=== PATIENT | female | born 1995 | race Caucasian/White ===

== ENCOUNTER 2016-06-17 22:10 | Emergency (ER) | payer OTHER ==
[2016-06-17 22:17] VITALS: BP 136/60; PULSE 112; TEMP 98.9; BMI 23.0
== END 2016-06-18 00:03 | disposition left against medical advice (07) ==
LOC: JER 22:10
DX: Z53.21 Procedure and treatment not carried out due to patient leaving prior to being seen by health care provider (principal)
CPT/HCPCS: 99281-25

== ENCOUNTER 2016-06-18 19:03 | Emergency (ER) | payer OTHER ==
[2016-06-18 19:10] VITALS: BP 111/79; PULSE 109; TEMP 97.9; BMI 24.7
--- NOTE | 2016-06-18 19:18 | PDOC ---
History of Present Illness - General History Source: Patient Exam Limitations: No Limitations - History of Present Illness Initial Comments: 06/18/16 20:30 The patient is a 21 year old female, with no significant past medical history who presents to the emergency department with abdominal pain, nausea, vomiting ( nonbloody), and diarrhea (nonbloody) since yesterday .The patient was seen in this ER 06/10 with similar symptoms. She reports after being discharged she was feeling fine. She does note yesterday her symptoms returned and had severely worsened. She notes her diarrhea and vomit was mostly watery without mucous. She notes that today she has been feeling mostly nauseous, weak, and has been unable to leave her bed. She denies any recent travel. She denies eating any recent new foods. She notes being able to tolerate water. She denies chest pain and shortness of breath. She denies fever, chills, headache and dizziness. She denies dysuria, frequency, urgency and hematuria. Allergies:NKA Past surgical history: None Social history: Social EtOH, drug, and tobacco use. <Shaggy Warner - Last Filed: 06/18/16 20:36> <Keira Garrison - Last Filed: 06/19/16 04:26> - General Chief Complaint: Pain Stated Complaint: ABDOMINAL PAIN/NAUSEA/VOMITING/DIRRHEA Time Seen by Provider: 06/18/16 19:10 Past History <Shaggy Warner - Last Filed: 06/18/16 20:36> - Past Medical History Other medical history: PT DENIES - Psycho/Social/Smoking Cessation Hx Anxiety: No Suicidal Ideation: No Smoking History: Never smoked Have you smoked in the past 12 months: No Information on smoking cessation initiated: No Hx Alcohol Use: No Drug/Substance Use Hx: No Substance Use Type: None <Keira Garrison - Last Filed: 06/19/16 04:26> - Past Medical History Allergies/Adverse Reactions: Allergies Allergy/AdvReac Type Severity Reaction Status Date / Time No Known Allergies Allergy Verified 06/17/16 22:15 Home Medications: Ambulatory Orders NK [No Known Home Medication] 06/17/16 Review of Systems - Review of Systems All Other Systems: Reviewed and Negative <Shaggy Warner - Last Filed: 06/18/16 20:36> *Physical Exam - Vital Signs Last Vital Signs Temp Pulse Resp BP Pulse Ox 97.9 F 109 H 18 111/79 96 06/18/16 19:04 06/18/16 19:04 06/18/16 19:04 06/18/16 19:04 06/18/16 19:04 - Physical Exam Comments: 06/18/16 20:30 GENERAL: The patient is awake, alert, and fully oriented, in no acute distress. HEAD: Normal with no signs of trauma. EYES: Pupils equal, round and reactive to light, extraocular movements intact, sclera anicteric, conjunctiva clear with no pallor. ENT: Ears normal, nares patent, oropharynx clear without exudates. Somewhat dry mucous membranes. NECK: Normal range of motion, supple without lymphadenopathy, JVD, or masses. LUNGS: Breath sounds equal, clear to auscultation bilaterally. No wheeze/ crackles. HEART: Regular rate and rhythm, normal S1 and S2 without murmur or rub. ABDOMEN: Mild generalized abdominal tenderness. Soft/nondistended. BS wnl. No guarding or rebound. No palpable masses. No hepatosplenomegaly. EXTREMITIES: Normal range of motion, no edema. No clubbing or cyanosis. No cords , erythema, or tenderness. NEUROLOGICAL: Cranial nerves II through XII grossly intact. Normal speech, normal gait. PSYCH: Normal mood, normal affect. SKIN: Warm, Dry, normal turgor, no rashes or lesions noted. <Shaggy Warner - Last Filed: 06/18/16 20:36> - Vital Signs Last Vital Signs Temp Pulse Resp BP Pulse Ox 97.9 F 109 H 18 111/79 96 06/18/16 19:04 06/18/16 19:04 06/18/16 19:04 06/18/16 19:04 06/18/16 19:04 <Keira Garrison - Last Filed: 06/19/16 04:26> ED Treatment Course - LABORATORY CBC & Chemistry Diagram: 06/18/16 20:03 06/18/16 20:03 <Shaggy Warner - Last Filed: 06/18/16 20:36> - LABORATORY CBC & Chemistry Diagram: 06/18/16 20:03 06/18/16 20:03 <Keira Garrison - Last Filed: 06/19/16 04:26> Progress Note - Progress Note Progress Note: Documentation has been prepared under my direction and personally reviewed by me in its entirety. I attest that this documented accurately reflects all work, treatment, procedures and medical decision making performed by me. <Keira Garrison - Last Filed: 06/19/16 04:26> Medical Decision Making - Medical Decision Making As noted above, this 21-year-old otherwise healthy woman presents with recurrent nausea/vomiting/diarrhea. Patient was seen with similar symptoms last week. Exam is generally without significant abnormalities. CBC and chemistry profile is normal except for a mildly decreased sodium of 131. PGU is negative Urinalysis shows many bacteria but also many epithelial cells and is likely contaminated. Patient does not have any UTI symptoms at this time. Culture and sensitivity will not be sent. Patient received 4 mg of Zofran IV and felt significantly better. Patient will be discharged with instructions to maintain clear liquids and advance diet cautiously. She should follow-up with her own doctor and return to the emergency room if severe symptoms recur. <Keira Garrison - Last Filed: 06/19/16 04:26> *DC/Admit/Observation/Transfer - Attestations Scribe Attestion: 06/18/16 19:19 Documentation prepared by Shaggy Warner, acting as medical insurance coding specialist for Keira Garrison MD. <Shaggy Warner - Last Filed: 06/18/16 20:36> <Keira Garrison - Last Filed: 06/19/16 04:26> Diagnosis at time of Disposition: Gastroenteritis - Discharge Dispostion Disposition: HOME Condition at time of disposition: Stable - Patient Instructions Printed Discharge Instructions: DI for Viral Gastroenteritis -- Adult Additional Instructions: Clear liquids, advance diet cautiously Zofran 4 mg ODT up to 3 times a day as needed for nausea Return to ER or see your doctor if you have worsening abdominal pain or persistent vomiting - Post Discharge Activity Work/School Note: Back to Work
[2016-06-18 19:24] LABS: URINE BILIRUBIN 1+ (NEGATIVE); URINE BLOOD Negative (NEGATIVE); URINE GLUCOSE (UA) Negative (NEGATIVE); URINE KETONE 2+ (NEGATIVE); URINE LEUK ESTERASE Trace (NEGATIVE); URINE NITRITE Negative (NEGATIVE); URINE UROBILINOGEN 1.0 E.U/dl (0.2-1.0)
[2016-06-18 19:26] LABS: URINE APPEARANCE CLOUDY; URINE COLOR AMBER; URINE PROTEIN 2+ (NEGATIVE)
[2016-06-18 19:40] LABS: URINE BACTERIA MANY /hpf (NEGATIVE); URINE RBC 0-3 /hpf (0-3)
[2016-06-18 20:14] LABS: BASOPHIL 0.1 % (0-2.0); EOSINOPHIL 1.5 % (0-4.5); MCH 29.7 pg (25.7-33.7); MCHC 33.2 g/dl (32.0-36.0); MEAN CELL VOLUME 89.5 fl (80-96); MEAN PLT VOLUME 9.2 fl (7.5-11.1); NEUTROPHILS 64.6 % (42.8-82.8); PLATELET COUNT 229 K/MM3 (134-434); WHITE BLOOD COUNT 5.7 K/mm3 (4.0-10.0)
[2016-06-18 20:25] LABS: ALBUMIN 4.3 g/dl (3.5-5.0); ALK PHOS 69 U/L (32-92); ANION GAP 8 (8-16); BILIRUBIN,TOTAL 0.9 mg/dl (0.2-1.0); CALCIUM 8.8 mg/dl (8.4-10.2); CO2 25 mmol/L (22-28); CREATININE 0.7 mg/dl (0.6-1.3); GLUCOSE,RANDOM 79 mg/dl (74-106); SGOT/AST 26 U/L (10-42); SGPT/ALT 17 U/L (10-40); TOT PROT 7.2 g/dl (6.4-8.3)
[2016-06-18] MEDS ORDERED: ONDANSETRON 4 MG/2 ML VIAL IVPUSH ONE (20:30)
[2016-06-18] MEDS ORDERED: ONDANSETRON 4 MG/2 ML VIAL ONE (20:35)
== END 2016-06-18 21:13 | disposition home or self-care (01) ==
LOC: FER 19:03
PROC: 3E033GC Introduction of Other Therapeutic Substance into Peripheral Vein, Percutaneous Approach (ICD-10-PCS; principal; 2016-06-18)
DX: K52.9 Noninfective gastroenteritis and colitis, unspecified (principal)
CPT/HCPCS: 36415; 80053; 81003; 81015; 84703; 85025; 96374; 99283-25

== ENCOUNTER 2016-12-11 20:20 | Emergency (ER) | payer OTHER ==
[2016-12-11 20:32] VITALS: BP 129/80; PULSE 91; TEMP 98.4; BMI 24.0
--- NOTE | 2016-12-11 20:34 | PDOC ---
History of Present Illness - General History Source: Patient Exam Limitations: No Limitations - History of Present Illness Initial Comments: 12/11/16 20:56 The patient is a 21-year-old female, with no significant past medical history, who presents to the ED with abdominal pain nausea and vomiting that began on Thursday and abdominal pain that began yesterday. The patient describes the pain as intermittent, sharp in sensation, located in the epigastric area, nonradiating, and alleviated with passing bowel movements. Patient has had sharp abdominal pain in the past due to gas. She does report vomiting x1 today and multiple episodes of runny stools. Pt is sexually active and uses condoms. Last menstrual period was two days ago and was a normal. The patient denies any fever, chills, or cough. She denies any blood in stool. She denies any dysuria, frequency, urgency, or hesitancy. PAST MEDICAL HISTORY: no significant history PAST SURGICAL HISTORY: no significant history FAMILY HISTORY: no pertinent history SOCIAL HISTORY: Pt lives with family and is employed. Marijuana daily. She denies any tobacco or drug use. MEDICATIONS: reviewed ALLERGIES: As per nursing notes ROS General: No fevers or chills, no weakness, no weight loss HEENT: No change in vision. No sore throat,. No ear pain CardioVascular: No chest pain or shortness of breath Respiratory:No cough, or wheezing. Gastrointestinal:No constipation, No rectal bleeding. +abdominal pain, nausea, vomiting, diarrhea Genitourinary: No dysuria, hematuria, or frequency Musculoskeletal: No joint or muscle pain or swelling Neurologic: No headache, vertigo, dizziness or loss of consciousness Psychiatric: nor depression Skin: No rashes or easy bruising Endocrine: no increased thirst or abnormal weight change Allergic: no skin or latex allergy All other systems reviewed and normal Physical Exam: General: Well-nourished well-developed individual, no acute distress HEENT: Throat: Normal, tonsils normal, no erythema or exudate Neck: Supple, no meningeal signs, no lymphadenopathy Eyes::Pupils equal reactive and round, extraocular motion intact Chest: Nontender to palpation Cardiac: S1-S2 normal, regular rate and rhythm, no murmurs rubs or gallops Respiratory: Lungs clear to auscultation bilateral Abdomen: Soft, nondistended, normal bowel sounds. +Very mild tenderness to deep palpation of the epigastric area. Extremities: Warm, dry, no cyanosis, clubbing, or edema Skin: No rashes Neuro: Alert and oriented x3, nonfocal exam, grossly intact, normal gait Psych: Normal mood and affect <Izzy Hunter - Last Filed: 12/11/16 20:56> - General History Source: Patient Exam Limitations: No Limitations - History of Present Illness Initial Comments: 12/11/16 21:23 A portion of this note was documented by scribe services under my direction. I have reviewed the details of the note, within reason, and agree with the documentation. The case summary and management plan written by me. Assessment and plan: This is a 21-year-old female who comes in with several days of morning nausea and vomiting and intermittent sharp epigastric pain post vomiting. Patient had very little pain here in the emergency room and on exam her exam was essentially normal with minimal pain on palpation in the epigastric area Patient is a daily marijuana smoker and I discussed with her the delayed gastric emptying as a result of her daily marijuana use and gave her some suggestions as to what she would need to do if she decided to stop her daily marijuana use. In addition to that there may be also a acid reflux gastric irritation component to the nausea and epigastric pain so suggested that she take some [id number] antacids such as Tums, Pepcid or Prilosec. Patient does have a doctor to follow-up with. <Cameron Pelaez I - Last Filed: 12/11/16 21:26> - General Stated Complaint: MORNING N/V X 4 DAYS. SHARP ABD PAIN X2 2 DAYS Time Seen by Provider: 12/11/16 20:31 Past History <Izzy Hunter - Last Filed: 12/11/16 20:56> - Reproductive History Is Patient Now?: No - Psycho/Social/Smoking Cessation Hx Anxiety: No Suicidal Ideation: No Smoking History: Never smoked Have you smoked in the past 12 months: No Information on smoking cessation initiated: No Hx Alcohol Use: No Drug/Substance Use Hx: Yes (MARIJUANA DAILY) Substance Use Type: Marijuana <Cameron Pelaez I - Last Filed: 12/11/16 21:26> - Past Medical History Allergies/Adverse Reactions: Allergies Allergy/AdvReac Type Severity Reaction Status Date / Time crab Allergy Mild Rash Verified 12/11/16 20:50 Home Medications: Ambulatory Orders NK [No Known Home Medication] 06/17/16 *Physical Exam - Vital Signs Last Vital Signs Temp Pulse Resp BP Pulse Ox 98.4 F 91 H 15 129/80 100 12/11/16 20:25 12/11/16 20:25 12/11/16 20:25 12/11/16 20:25 12/11/16 20:25 <Izzy Hunter - Last Filed: 12/11/16 20:56> - Vital Signs Last Vital Signs Temp Pulse Resp BP Pulse Ox 98.4 F 91 H 15 129/80 100 12/11/16 20:25 12/11/16 20:25 12/11/16 20:25 12/11/16 20:25 12/11/16 20:25 <Cameron Pelaez I - Last Filed: 12/11/16 21:26> ED Treatment Course - ADDITIONAL ORDERS Additional order review: Laboratory Results 12/11/16 20:38 Urine HCG, Qual Negative <Izzy Hunter - Last Filed: 12/11/16 20:56> *DC/Admit/Observation/Transfer - Attestations Scribe Attestion: 12/11/16 20:59 Documentation prepared by Izzy Hunter, acting as medical nurse for Cameron Pelaez MD. <Izzy Hunter - Last Filed: 12/11/16 20:56> - Discharge Dispostion Admit: No <Cameron Pelaez I - Last Filed: 12/11/16 21:26> Diagnosis at time of Disposition: Epigastric pain - Discharge Dispostion Disposition: HOME Condition at time of disposition: Good - Patient Instructions Additional Instructions: Purchase some [id number] Pepcid, Tums, or Prilosec and take as directed on the box. Return to the emergency department immediately with ANY new, persistent or worsening symptoms. Continue any medications as previously prescribed by your physician. You should follow up with your primary doctor as soon as possible regarding today's emergency department visit. . Please make sure your doctor reviews the results of your emergency evaluation. Thank you for coming to the Emergency Department today for your care. It was a pleasure to see you today. Please note that your evaluation is INCOMPLETE until you follow-up with your doctor.
[2016-12-11 20:55] LABS: PH,URINE 5.5 (4.5-8); URINE APPEARANCE Clear; URINE BILIRUBIN Negative (NEGATIVE); URINE BLOOD Negative (NEGATIVE); URINE GLUCOSE (UA) Negative (NEGATIVE); URINE KETONE Negative (NEGATIVE); URINE LEUK ESTERASE Negative (NEGATIVE); URINE NITRITE Negative (NEGATIVE); URINE PROTEIN Negative (NEGATIVE); URINE UROBILINOGEN 0.2 E.U/dl (0.2-1.0)
[2016-12-11] MEDS ORDERED: FAMOTIDINE 20 MG TABLET PO ONE (20:55)
[2016-12-11] MEDS ORDERED: MAG HYDROX/AL HYDROX/SIMETH 30 ML UNIT-DOSE CUP PO PRN (20:55)
[2016-12-11 20:56] LABS: URINE COLOR YELLOW
[2016-12-11] MEDS ORDERED: MAG HYDROX/AL HYDROX/SIMETH 30 ML UNIT-DOSE CUP ONE (20:57)
[2016-12-11] MEDS ORDERED: FAMOTIDINE 20 MG TABLET ONE (20:57)
== END 2016-12-11 21:28 | disposition home or self-care (01) ==
LOC: FER 20:20
DX: R10.13 Epigastric pain (principal)
CPT/HCPCS: 81003; 84703; 99283-25